=== PATIENT | female | born 1965 | race Caucasian/White ===

== ENCOUNTER 2019-08-16 13:16 | Observation (INO) | payer BC ==
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
[2019-08-16] MEDS ORDERED: NS 0.9% 1000 ML** 1,000 ML IV ONE (13:26)
[2019-08-16] MEDS ORDERED: Diltiazem IV push/loading dose 5 MG/ML 5 ML vial (25 mg) IV SLOW PU ONE ×2 (13:26→13:42)
[2019-08-16] MEDS ORDERED: Magnesium Sulfate 1 GM IV* 1 GM/100 ML BAG IV ONE (13:34)
[2019-08-16 13:54] LABS: ABS Basophils 0.1 10^3/ul (0-0.2); ABS Eosinophils 0.1 10^3/ul (0-0.6); ABS Lymphocytes 3.5 10^3/ul (1.0-4.8); ABS Monocytes 0.9 10^3/ul (0-0.8); ABS Neutrophils 4.8 10^3/ul (1.5-7.7); Eosinophil % 1.1 %; Hematocrit 40 % (35-47); Hemoglobin 13.7 g/dL (12.0-16.0); Lymphocyte % 37.5 %; Mean Corpuscular HGB Conc 34 g/dL (31-36); Mean Corpuscular Hemoglobin 32 pg (27-31); Mean Corpuscular Volume 93 fL (80-97); Mean Platelet Volume 8.8 fL (7.4-10.4); Platelet Count 324 10^3/uL (150-450); Red Blood Count 4.29 10^6 /uL (3.70-4.87); Red Cell Distribution Width 13 % (10-15); White Blood Count 9.2 10^3/uL (3.5-10.8)
[2019-08-16 14:11] LABS: Albumin 4.7 g/dL (3.2-5.2); Albumin/Globulin Ratio 1.6 (1-3); Calcium 10.2 mg/dL (8.6-10.3); EGFR African American 94.9 (>60); EGFR Non-African American 78.4 (>60); Magnesium 1.9 mg/dL (1.9-2.7); Potassium 3.7 mmol/L (3.5-5.0); Total Bilirubin 0.6 mg/dL (0.2-1.0); Total Protein 7.7 g/dL (6.4-8.9)
[2019-08-16] MEDS ORDERED: Diltiazem IV BAG* D5W Premix 125 MG/125 ML BAG IV SCH ×3 (15:00→19:00)
[2019-08-16 15:36] LABS: TSH (Thyroid Stimulating Horm) 3.64 mcIU/mL (0.34-5.60)
[2019-08-16 15:38] LABS: Free T4 0.72 ng/dL (0.61-1.12)
[2019-08-16] MEDS ORDERED: Metoprolol Tartrate TAB* 25 MG PO ONE (16:54)
[2019-08-16] MEDS ORDERED: Acetaminophen TAB* 325 MG PO PRN (16:58)
[2019-08-16] MEDS ORDERED: Enoxaparin(*) 40 MG/0.4 ML SYR SUBCUT SCH (17:00)
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
[2019-08-16] MEDS ORDERED: Aspirin EC TAB* 325 MG PO SCH (19:00)
--- NOTE | 2019-08-16 21:33 | HP ---
HISTORY AND PHYSICAL/DISCHARGE SUMMARY: ADDENDUM: Ms. Garza is a 54-year-old female. She was placed on a Cardizem drip at 15 mg/hour and subsequently converted to sinus rhythm. She is asymptomatic. She has no chest pain, no shortness of breath. At this time, she is stable for discharge home. PHYSICAL ASSESSMENT: The patient has had no change in her physical assessment since her admission. GENERAL: She is alert and oriented x3. VITAL SIGNS: Blood pressure 145/78, heart rate 83, respirations 20, O2 saturation 98%, temperature is 98.8. LUNGS: Lung sounds are clear. HEART: S1, S2. Regular rate and rhythm. No murmurs, rubs, or gallops. ABDOMEN: Soft and nontender. Bowel sounds are present x4. DISCHARGE PLAN: The patient will be discharged home. Rapid atrial fibrillation. The patient was admitted for rapid atrial fibrillation with RVR. She was placed on a Cardizem drip after receiving 20 mg total Cardizem bolus and subsequently converted to sinus rhythm. She did receive metoprolol tartrate 25 mg p.o. after conversion to sinus rhythm. At this time, her Cardizem drip has been stopped. I will discharge her on Cardizem CD 180 mg p.o. daily. She should follow up with her doctor, Dr. Chand. She should call in the morning for an appointment. She will also be placed on aspirin 325 mg. Again, that should be discussed with Dr. Chand , her primary animal care attendant, for further recommendations on antiplatelet versus anticoagulation due to her intermittent atrial fibrillation. The patient was instructed to return to the emergency room for any chest pain, shortness of breath, dizziness, palpitations, or any other concerning symptoms. She verbalized understanding. DISPOSITION: Home. CONDITION ON DISCHARGE: Stable. I have discussed this with my attending, Dr. Christel Purvis; she is in agreement with my plan. CHLOE BLACK, JEFFERY [id number]/[facility] #: [id number] KEVON
[2019-08-17 00:01] VITALS: BP 140/79
== END 2019-08-16 20:30 | disposition home or self-care (01) ==
LOC: ED 13:16 → MEDTELE 16:58
PROVIDERS: ADMIT Nurse Practitioner; ATTEND Nurse Practitioner
DX: I48.20 Chronic atrial fibrillation, unspecified (principal); R00.0 Tachycardia, unspecified; R94.31 Abnormal electrocardiogram [ECG] [EKG]; L74.519 Primary focal hyperhidrosis, unspecified; Z79.82 Long term (current) use of aspirin; Z87.81 Personal history of (healed) traumatic fracture; Z79.899 Other long term (current) drug therapy
CPT/HCPCS: 36415; 80053; 83735; 84439; 84443; 85025; 93005; 96365; 96372; 96375; 96376; 99284; A9270-GY; G0378; J1650; J3475; J3490

== ENCOUNTER 2019-09-01 12:03 | Emergency (ER) | payer SELFPAY ==
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
[2019-09-01 13:25] VITALS: BP 137/76
== END 2019-09-01 13:24 | disposition home or self-care (01) ==
LOC: ED 12:03
DX: R00.2 Palpitations (principal); I48.20 Chronic atrial fibrillation, unspecified; Z79.899 Other long term (current) drug therapy
CPT/HCPCS: 93005; 99282